=== PATIENT | female | born 1960 | race Caucasian/White ===

== ENCOUNTER 2018-12-16 09:38 | Outpatient (CLI) | payer OTHER ==
[~2018-12-16 09:38] MED LIST: MENEST0.625 MG PO; NABUMETONE500 MG PO; PERCOCET 5/3251 TAB PO; PRILOSEC OTC20 MG PO
== END 2018-12-16 09:40 | disposition home or self-care (01) ==
LOC: RAD 09:38
DX: R07.89 Other chest pain (principal); Z01.811 Encounter for preprocedural respiratory examination